=== PATIENT | male | born 1995 | race Caucasian/White ===

== ENCOUNTER 2022-10-11 14:14 | Inpatient (IN) | payer SELFPAY ==
[~2022-10-11] VITALS: Ht 188 cm; Wt 145.1 kg
--- NOTE | 2022-10-11 17:20 | NUR ---
ASSUME PATIENT CARE, RESTING IN BED. HERE FOR 1 WEEK OF COUGH AND CONGESTION W/ SOB. DENIES FEVER. 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 DOES NOT ENDORSE ANY SICK CONTACT. GOWNED AND PLACED ON MONITOR. VSS. AWAITING MD COLEMAN.
--- NOTE | 2022-10-11 17:29 | NUR ---
DR CUMMINGS AT BEDSIDE FOR EVAL.
[2022-10-11] MEDS ORDERED: ALBUTEROL FS 2.5 MG/0.5 ML VIAL.NEB NEB ONE ×2 (17:30→19:30)
[2022-10-11] MEDS ORDERED: IPRATROPIUM NEB FS 0.5 MG/2.5 ML AMPUL.NEB NEB ONE ×3 (17:30→21:00)
[2022-10-11] MEDS ORDERED: ALBUTEROL FS 2.5 MG/0.5 ML VIAL.NEB ONE (17:47)
[2022-10-11] MEDS ORDERED: IPRATROPIUM NEB FS 0.5 MG/2.5 ML AMPUL.NEB ONE ×3 (17:47→21:20)
--- NOTE | 2022-10-11 18:01 | NUR ---
RT AT BEDSIDE FOR BREATHING TREATMENT
[2022-10-11 18:26] LABS: BASOPHILS # (AUTO) 0.1 K/uL (0.0-0.2); BASOPHILS % (AUTO) 0.6 % (0.0-2.0); EOSINOPHILS % (AUTO) 8.3 % (0.0-6.0); HEMATOCRIT 46 % (39-51); HEMOGLOBIN 15.5 g/dL (13.5-17.5); LYMPHOCYTES # (AUTO) 2.4 K/uL (0.8-4.8); LYMPHOCYTES % (AUTO) 24.8 % (20.0-44.0); MEAN CORPUSCULAR HGB CONC 34 g/dl (31.0-36.0); MEAN CORPUSCULAR VOLUME 84 fL (80-96); MONOCYTES # (AUTO) 0.7 K/uL (0.1-1.30); MONOCYTES % (AUTO) 7.7 % (2.0-12.0); NEUTROPHILS # (AUTO) 5.6 K/uL (1.8-8.9); NEUTROPHILS % (AUTO) 58.6 % (43.0-81.0); PLATELET COUNT (AUTO) 351 K/uL (150-450); RED BLOOD CELL COUNT(AUTO) 5.51 MIL/uL (4.5-6.0); WHITE BLOOD COUNT (AUTO) 9.6 K/uL (4.3-11.0)
[2022-10-11 18:45] LABS: CALCIUM, SERUM 9.5 mg/dL (8.5-10.1); CARBON DIOXIDE 26 mmol/L (21-32); CHLORIDE 103 mmol/L (98-107); GLUCOSE 81 mg/dL (74-106); POTASSIUM 3.7 mmol/L (3.5-5.1); SODIUM SERUM 139 mmol/L (136-145); UREA NITROGEN, BLOOD 12 mg/dL (7-18)
[2022-10-11] MEDS ORDERED: predniSONE 20 MG TABLET ONE (19:22)
[2022-10-11] MEDS ORDERED: predniSONE 50 MG TABLET PO ONE (19:30)
[2022-10-11] MEDS ORDERED: ALBUTEROL FS 2.5 MG/3 ML VIAL.NEB ONE ×3 (19:43→23:38)
[2022-10-11] MEDS ORDERED: ALBUTEROL FS 2.5 MG/3 ML VIAL.NEB CONTNEB ONE ×2 (21:00→23:30)
--- NOTE | 2022-10-11 23:34 | NUR ---
PETER TODD COLLECTED AND SENT TO LAB.
--- NOTE | 2022-10-11 23:37 | NUR ---
RT AT PT'S BEDSIDE FOR BREATHING TX
[2022-10-12] MEDS ORDERED: ALBUTEROL FS 2.5 MG/0.5 ML VIAL.NEB NEB PRN (01:00)
[2022-10-12] MEDS ORDERED: ONDANSETRON HCL/PF 4 MG/2 ML VIAL IVP PRN (01:00)
[2022-10-12] MEDS ORDERED: HYDROCODONE/APAP 10/325MG TABLET PO PRN (01:00)
[2022-10-12] MEDS ORDERED: MAG HYDROX/AL HYDROX/SIMETH 30 ML UDC PO PRN (01:00)
[2022-10-12] MEDS ORDERED: TEMAZEPAM 15 MG CAPSULE PO PRN (01:00)
[2022-10-12] MEDS ORDERED: HYDROCODONE/APAP 5/325MG TABLET PO PRN (01:00)
[2022-10-12] MEDS ORDERED: MAGNESIUM HYDROXIDE 30 ML UDC PO PRN (01:00)
[2022-10-12] MEDS ORDERED: IPRATROPIUM NEB FS 0.5 MG/2.5 ML AMPUL.NEB NEB PRN (01:00)
[2022-10-12] MEDS ORDERED: Z GUARD REMEDY 4 OZ OINT TP PRN (01:00)
[2022-10-12] MEDS ORDERED: ACETAMINOPHEN 325 MG TABLET PO PRN (01:00)
--- NOTE | 2022-10-12 02:46 | NUR ---
REPORT GIVEN TO REESE FOR CONTINUATION OF CARE.
--- NOTE | 2022-10-12 03:50 | NUR ---
DIRECTOR MANUFACTURING ENGINEERING NOTES: RECEIVED REPORT FROM PIYUSH TUBBS. PT TRANSFERRED TO [facility] FROM ER VIA STRETCHER, PLACED IN BED ROOM 114, BED 2. PT AWAKE, ALERT/ORIENTED X4 AND VERBALLY RESPONSIVE. LIBERIAN SPEAKING ONLY. ON O2 AT 2L/MIN VIA N/C AND PT TOLERATED WELL. IV ACCESS ON RT WRIST#22G INTACT AND PATENT. NO S/S OF INFILTRATIONS. NO C/O PAIN OR DISCOMFORT. NO ACUTE DISTRESS. STATED, FEELING LITTLE BETTER THAN BEFORE. BODY ASSESSMENT DONE. NO OPEN SKIN OR SKIN DISCOLORATIONS NOTED. ALL SAFETY MEASURES IN PLACE. BED IN LOWEST POSITION AND LOCKED. SIDE RAILS UP X2, PLACE CALL LIGHT WITH IN REACH. WILL CONTINUE TO MONITOR
--- NOTE | 2022-10-12 03:54 | NUR ---
PT TRANSFERRING TO 114-2 VIA ACLS PROTOCOL. VSS.
[2022-10-12 04:00] VITALS: BP 109/78
[2022-10-12] MEDS: methylPREDNISolone SOD SUCC 40 MG/ML VIAL IV SCH ×3 (05:07→21:25)
--- NOTE | 2022-10-12 06:34 | NUR ---
RN CLOSING NOTES: PT SLEEPING IN BED BUT EASILY AROUSABLE, ALERT/ORIENTED X4 AND VERBALLY RESPONSIVE. ON O2 AT 2L/MIN VIA N/C AND PT TOLERATED WELL. IV ACCESS ON RT WRIST#22G INTACT AND PATENT. NO S/S OF INFILTRATIONS. NO C/O PAIN OR DISCOMFORT. NO ACUTE DISTRESS. DUE MED GIVEN ORDERED. ALL SAFETY MEASURES IN PLACE. BED IN LOWEST POSITION AND LOCKED. SIDE RAILS UP X2, PLACE CALL LIGHT WITH IN REACH. WILL ENDORSE TO MORNING SHIFT NURSE.
[2022-10-12 07:27] LABS: BASOPHILS % (AUTO) 0.3 % (0.0-2.0); EOSINOPHILS % (AUTO) 0.7 % (0.0-6.0); HEMATOCRIT 44 % (39-51); HEMOGLOBIN 14.8 g/dL (13.5-17.5); LYMPHOCYTES # (AUTO) 0.8 K/uL (0.8-4.8); LYMPHOCYTES % (AUTO) 8.5 % (20.0-44.0); MEAN CORPUSCULAR HGB CONC 34 g/dl (31.0-36.0); MEAN CORPUSCULAR VOLUME 85 fL (80-96); MONOCYTES # (AUTO) 0.3 K/uL (0.1-1.30); MONOCYTES % (AUTO) 3.1 % (2.0-12.0); NEUTROPHILS # (AUTO) 8.4 K/uL (1.8-8.9); NEUTROPHILS % (AUTO) 87.4 % (43.0-81.0); PLATELET COUNT (AUTO) 335 K/uL (150-450); RED BLOOD CELL COUNT(AUTO) 5.12 MIL/uL (4.5-6.0); WHITE BLOOD COUNT (AUTO) 9.6 K/uL (4.3-11.0)
[2022-10-12 07:38] LABS: CALCIUM, SERUM 9.6 mg/dL (8.5-10.1); CREATININE 0.9 mg/dL (0.6-1.3); MAGNESIUM 2.2 mg/dL (1.8-2.4); PHOSPHORUS 4.3 mg/dL (2.5-4.9); POTASSIUM 4.1 mmol/L (3.5-5.1)
[2022-10-12] MEDS: PANTOPRAZOLE 40 MG TABLET.DR PO SCH (08:10)
[2022-10-12 12:00] VITALS: BP 112/88
--- NOTE | 2022-10-12 19:39 | NUR ---
RN OPENING NOTE PATIENT ASLEEP IN BED. A/OX4. NO S/S OF DISTRESS, BREATHING WITHOUT DIFFICULTY ON 2L NC. R-WRIST #22 SL INTACT AND PATENT. SAFETY MEASURES IN PLACE: BED LOCKED AND AT LOWEST POSITION, MID-FOWLERS, RAILS UP X2, CALL CARY WITHIN REACH. WILL CONTINUE TO MONITOR PATIENT.
[2022-10-12 20:00] VITALS: BP 121/75
[2022-10-12] MEDS: IPRATROPIUM NEB FS 0.5 MG/2.5 ML AMPUL.NEB NEB SCH ×2 (20:00→23:34)
[2022-10-12] MEDS: ALBUTEROL FS 2.5 MG/0.5 ML VIAL.NEB NEB SCH ×2 (20:01→23:34)
[2022-10-13] MEDS: IPRATROPIUM NEB FS 0.5 MG/2.5 ML AMPUL.NEB NEB SCH ×4 (03:30→16:01)
[2022-10-13] MEDS: ALBUTEROL FS 2.5 MG/0.5 ML VIAL.NEB NEB SCH ×4 (03:30→16:01)
[2022-10-13 04:00] VITALS: BP 103/44
[2022-10-13] MEDS: methylPREDNISolone SOD SUCC 40 MG/ML VIAL IV SCH ×2 (04:28→15:45)
--- NOTE | 2022-10-13 06:48 | NUR ---
RN CLOSING NOTE PATIENT AWAKE IN BED. A/OX4. NO S/S OF DISTRESS, BREATHING WITHOUT DIFFICULTY ON 2L NC. R-WRIST #22 SL INTACT AND PATENT. SAFETY MEASURES IN PLACE: BED LOCKED AND AT LOWEST POSITION, MID-FOWLERS, RAILS UP X2, CALL CARY WITHIN REACH. WILL ENDORSE TO NEXT SHIFT FOR DOLORES.
--- NOTE | 2022-10-13 07:15 | NUR ---
BOTTLE WASHER OPENING NOTE RECEIVED PATIENT A/A/OX4. 02 2L N/C 97% NO RESPIRATORY DISTRESS NOTED. IV ACCESS TO RIGHT WRIST INTACT. PATIENT DENIES PAIN. SAFETY MEASURES IN PLACE, BED LOCKED TO THE LOWEST POSITION, CALL LIGHT, TABLE WITHIN REACH. WILL CONT. TO MONITOR.
[2022-10-13 07:27] LABS: BASOPHILS % (AUTO) 0.2 % (0.0-2.0); EOSINOPHILS % (AUTO) 0.1 % (0.0-6.0); HEMATOCRIT 45 % (39-51); HEMOGLOBIN 15.1 g/dL (13.5-17.5); LYMPHOCYTES # (AUTO) 1.1 K/uL (0.8-4.8); LYMPHOCYTES % (AUTO) 8.2 % (20.0-44.0); MEAN CORPUSCULAR HGB CONC 34 g/dl (31.0-36.0); MEAN CORPUSCULAR VOLUME 84 fL (80-96); MONOCYTES # (AUTO) 0.5 K/uL (0.1-1.30); MONOCYTES % (AUTO) 3.8 % (2.0-12.0); NEUTROPHILS # (AUTO) 11.8 K/uL (1.8-8.9); NEUTROPHILS % (AUTO) 87.7 % (43.0-81.0); PLATELET COUNT (AUTO) 332 K/uL (150-450); RED BLOOD CELL COUNT(AUTO) 5.33 MIL/uL (4.5-6.0); WHITE BLOOD COUNT (AUTO) 13.5 K/uL (4.3-11.0)
[2022-10-13 07:42] LABS: CALCIUM, SERUM 9.8 mg/dL (8.5-10.1); CREATININE 0.9 mg/dL (0.6-1.3); MAGNESIUM 2.5 mg/dL (1.8-2.4); PHOSPHORUS 3.7 mg/dL (2.5-4.9); POTASSIUM 4.6 mmol/L (3.5-5.1)
[2022-10-13] MEDS: PANTOPRAZOLE 40 MG TABLET.DR PO SCH (09:27)
[2022-10-13] MEDS ORDERED: PRED20TA PO (14:41)
[2022-10-13] MEDS ORDERED: FLUT1DIS INH (14:41)
[2022-10-13 14:53] VITALS: BP 110/50
--- NOTE | 2022-10-13 16:50 | NUR ---
ESL INSTRUCTOR DISCHARGE NOTE PATIENT IS A/A/OX4, O2 SAT IN ROOM AIR IS 98%, NO S/S OF RESPIRATORY DISTRESS NOTED. PER DOCTORS ORDERS THE PATIENT IS STABLE TO BE DISCHARGED. DISCHARGE INSTRUCTIONS EXPLAINED TO PATIENT INCLUDING GO TO INSTRUCTION DEAN HIS HOME PRESCRIPTION MEDS TO HIS [facility]. FOLLOW UP WITH HIS PRIMARY DOCTOR. 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 PATIENT VERBALIZED UNDERSTANDING DISCHARGE INSTRUCTIONS. IV ACCESS REMOVED CATHETER TIP INTACT, NO S/S OF INFILTRATION NOTED. PRESSURE DRESSING APPLIED. GOING HOME VIA W/C ACCOMPANIED BY STAFF CHIEF TELEPHONE OPERATOR AND PATIENT'S FAMILY MEMBER. PATIENT SIGNED DISCHARGE FORMS, BELONGINGS FORM. THE CHARGE NURSE AWARE.
[2022-10-13 17:01] VITALS: BP 110/59
== END 2022-10-13 16:50 | disposition home or self-care (01) | DRG 202 ==
LOC: ER 14:29 → TELE1 10-12 02:04 → MEDSG1 10-12 03:28
PROVIDERS: ADMIT Nurse Practitioner Acute Care; ATTEND Nurse Practitioner Family
DX: J45.901 Unspecified asthma with (acute) exacerbation (principal); Z68.41 Body mass index [BMI] 40.0-44.9, adult; E66.01 Morbid (severe) obesity due to excess calories; F17.290 Nicotine dependence, other tobacco product, uncomplicated; Z20.822 Contact with and (suspected) exposure to COVID-19; G47.33 Obstructive sleep apnea (adult) (pediatric)
CPT/HCPCS: 36415; 70220-TC; 71045-TC; 80048-TC; 83735-TC; 83880; 84100-TC; 84484-TC; 85025-TC; 87081-TC; 94799-TC; C9803; G0378; J2405; J2920